=== PATIENT | male | born 1960 ===

== ENCOUNTER → 2019-03-01 | Outpatient (CLI) | payer OTHER | LOC: PLD 07:23 → LAB SHORT 07:23 | DX: R21 Rash and other nonspecific skin eruption (principal) | CPT/HCPCS: 88312 ==

== ENCOUNTER → 2020-02-14 | Outpatient (CLI) | payer OTHER | LOC: LAB SHORT 10:13 → LAB 10:13 | DX: I87.2 Venous insufficiency (chronic) (peripheral) (principal); L02.425 Furuncle of right lower limb; L02.426 Furuncle of left lower limb; R21 Rash and other nonspecific skin eruption; R60.0 Localized edema | CPT/HCPCS: 87070; 87205 ==

== ENCOUNTER → 2020-02-21 | Outpatient (CLI) | payer OTHER | LOC: LAB 15:05 → LAB SHORT 15:05 | DX: L08.9 Local infection of the skin and subcutaneous tissue, unspecified (principal); R21 Rash and other nonspecific skin eruption | CPT/HCPCS: 87070; 87205 ==